=== PATIENT | female | born 1985 | race Caucasian/White ===

== ENCOUNTER 2024-07-31 23:15 | Emergency (ER) | payer BC, SELFPAY ==
[2024-07-31 23:15] VITALS: BMI 29.0
[2024-07-31 23:51] VITALS: BP 122/96; PULSE 115; RESP 20; TEMP 37.1; O2SAT 97
--- NOTE | 2024-08-01 | XR_ITS ---
Examination: Breast ultrasound, unilateral, left complete Date and time of exam: August 01, 2024 0113 hrs. Indications: Left breast pain beginning 2 days ago, history left breast cancer lumpectomy 2 years ago, family history breast cancer, left breast sonogram 09/28/2023 4:00 nodule 7 x 8 mm Technique: Real-time rangel scale ultrasonographic imaging performed left breast including all 4 quadrants as well as nipple retroareolar and axillary region. Findings: 12:00 cyst 2.9 x 1.7 cm 1:00 cyst 2.3 x 1.9 cm 4:00 solid nodule circumscribed 1.0 x 1.0 cm 9:00 cyst 1.6 x 1.1 cm Multiple axillary lymph nodes, the largest 1.1 x 1.0 cm Impression: BI-RADS Category 3: Probably benign findings Recommend 1 additional 6 month left breast sonogram follow-up to document stability of 4:00 solid nodule described above
--- NOTE | 2024-08-01 00:10 | EDNOTE_ITS ---
ED Skin Abcess FB-RME/HPI General Chief complaint: General Adult/Misc Complain Stated complaint: breast mastitis FLAREUP Time Seen by Provider: 07/31/24 23:58 Arrival date/time: 07/31/24 23:15 39F with no significant PMH presents to ED with several months of L breast mastitis flare-ups. Patient was given 2 courses of Keflex in the previous episodes without complete resolution. Patient is not breast-feeding. Limitations: no limitations Related Data Allergies Allergy/AdvReac Type Severity Reaction Status Date / Time No Known Allergies Allergy Verified 07/31/24 23:17 Review of Systems Review of Systems Systems Reviewed: All systems reviewed, normal except as documented Constitutional Constitutional: Reports system reviewed and no additional complaints, except as documented, Denies fever(s) and Denies headache(s) ENT Ears, Nose, Mouth, and Throat: Denies disequilibrium and Denies headache(s) Cardiovascular Cardiovascular: Reports system reviewed and no additional complaints, except as documented, Denies chest pain and Denies dyspnea Respiratory Respiratory: Reports system reviewed and no additional complaints, except as documented, Denies cough and Denies dyspnea Gastrointestinal Gastrointestinal: Reports system reviewed and no additional complaints, except as documented, Denies abdominal pain, Denies nausea and Denies vomiting Integumentary/Breasts Skin/Breast: Reports acne and Reports breast pain Neurologic Neurologic: Reports system reviewed and no additional complaints, except as documented, Denies confusion, Denies disequilibrium and Denies headache(s) Psychiatric Psychiatric: Denies confusion Past Medical History Past Medical History NEUROLOGIC: Negative Neurological Disorders or Seizures CARDIAC: Negative Cardiac Disorders or Congestive Heart Failure RESPIRATORY: Negative Chronic Obstructive Pulmonary Disease (COPD) GASTROINTESTINAL: Positive Gall Bladder Disease (LAP); Negative Gastrointestinal Disorders GENITOURINARY: Positive Genitourinary Disorders and Kidney Stones (X2 PROC, stents); Negative Renal Disease REPRODUCTIVE: Positive Endometriosis and Previous Pregnancies () MUSCULOSKELETAL: Negative Musculoskeletal Disorders ENDOCRINE: Negative Endocrine Disorders, Diabetes Mellitus Type 1 or Diabetes Mellitus Type 2 HEMATOLOGIC: Positive Blood Disorders (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); Negative Hospitalization, Autoimmune Disease, Shingles, Falls, Blood Transfusion Reaction, Anesthesia Reactions, Chemotherapy or MRSA Family History FAMILY HISTORY: Positive Family Cancer (FATHER (BRAIN)) and Family Surgery (MOTHER,FATHER,BROTHER); Negative Family Psychiatric Problems, Family Respiratory Disorders, Family Cardiac Disorders, Family Gastrointestinal Problems or Family Anesthesia Reaction Surgical History SURGICAL: Positive Hysterectomy, Tubal Ligation and Section (x2); Negative Ear Surgery, Nephrectomy, Joint Replacement or Neurologic Surgery Social History SMOKING STATUS: Never smoker ED Exam General Limitations: Present no limitations General appearance: Present alert and in no apparent distress Head Head exam: Present atraumatic Eye Eye exam: Present normal appearance, PERRL and EOMI ENT ENT exam: Present normal exam, normal oropharynx and mucous membranes moist Neck Neck exam: Present normal inspection, full ROM and trachea midline Chest Chest inspection: Present symmetric chest wall rise Expanded Chest Exam Breast: left: erythema and tenderness Respiratory Respiratory exam: Present normal lung sounds bilaterally Cardiovascular Cardiovascular exam: Present regular rate, normal rhythm and normal heart sounds Abdominal Exam Abdominal exam: Present soft and normal bowel sounds Extremities Exam Extremities exam: Present normal inspection and full ROM Back Exam Back exam: Present normal inspection and full ROM Neurological Exam Neurological exam: Present alert, oriented X3 and CN II-XII intact Psychiatric Psychiatric exam: Present normal affect and normal mood Skin Skin exam: Present warm, dry, intact and normal color Course Quality Measures none Orders Category Date Time Status US breast LT complete Stat Exams 08/01/24 00:00 Taken CBC Stat Lab 07/31/24 23:59 Completed CMP [Comprehensive Metabolic Panel] Stat Lab 07/31/24 23:59 Completed Lactate (Lactic Acid) Stat Lab 07/31/24 23:59 Completed Procalcitonin Stat Lab 07/31/24 23:59 Completed Vital Signs Vital signs: Vital Signs Temperature 98.8 F 07/31/24 23:51 Pulse Rate 115 H 07/31/24 23:51 Respiratory Rate 20 07/31/24 23:51 Blood Pressure 122/96 H 07/31/24 23:51 Pulse Oximetry (%) 97 07/31/24 23:51 Oxygen Delivery Method Room Air 07/31/24 23:51 O2 at 97% on RA and WNLs Skin / Abscess / Foreign Body MDM Narrative MDM Narrative:: 39F with no significant PMH presents to ED with several months of L breast mastitis flare-ups. Patient was given 2 courses of Keflex in the previous episodes without complete resolution. Patient is not breast-feeding. 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 No obvious area of fluctuance. Patient is afebrile, calm, and alert. Patient eloped prior to DC. Patient data External records reviewed:: [facility] previous records Clinical information provided by:: patient Social determinants that could affect healthcare access:: none Patient has the following chronic illnesses:: none How is presenting disease/condition affected by chronic disease/condition?: no chronic disease Evaluation data The following diagnostics were reviewed and interpreted by me:: lab results and radiology exam(s) Lab and/or radiology exams considered but not ordered:: ordered Interpretation Summary: above Medications / Prescriptions Medications or Prescriptions considered but not ordered:: not ordered Medication administrations:: n/a Consultations Consultation(s) initiated? (list below): No Diagnosis Skin/Abscess Differential Diagnosis: abscess of skin or subcutaneous tissue, viral exanthem, dermatophytosis, urticaria, herpes zoster, allergic reaction to drug, cellulitis, eczema, insect bites, impetigo, contact dermatitis and other (mastitis, breast cancer) Most likely diagnosis given after review of the tests above:: mastitis Admission Indicated Admission indicated?: not indicated Admission Request Was there a request for admission?: No Disposition Plan Disposition Plan: other (specify) (eloped) Discharge Plan Plan Patient Disposition: Elopement Prescriptions/Referrals Referrals: Opal Eng MD [Primary Care Provider] - In 1 week Problem List Clinical Impression: Mastitis Patient/Caregiver Discharge Instructions Print Language: Greek SKYLAR Supervising Physician SKYLAR Supervising Physician: Dr. Melissa
[2024-08-01 00:56] LABS: Lactate (Lactic Acid) 1.1 mMol/L (0.4-2.0)
[2024-08-01 00:58] LABS: Basophils # (Auto) 0.1 Thou/mm3 (0.0-0.2); Basophils % (Auto) 1 % (0-2.5); Eosinophils # (Auto) 0.1 Thou/mm3 (0.0-0.5); Eosinophils % (Auto) 1 % (0-10); Hemoglobin 12.6 g/dL (12.0-16.0); Immature Granulocytes % (Auto) 0 % (0-0); Immature Granulocytes Auto 0.03 Thou/mm3 (0.00-0.00); Lymphocytes % (Auto) 9 % (10-50); Mean Corpuscular HGB Conc 34.1 g/dl (31.0-37.0); Mean Corpuscular Hemoglobin 29.2 pg (25.0-35.0); Mean Corpuscular Volume 86 fL (80-100); Monocytes # (Auto) 0.9 Thou/mm3 (0.0-0.8); Monocytes % (Auto) 8 % (0-12); Neutrophils % (Auto) 81 % (37-80); Nucleated Red Blood Cell % 0 /100 WBC (0); Platelet Count 165 Thou/mm3 (140-440); Red Blood Count 4.31 Miln/mm3 (4.00-5.20); White Blood Count 11.1 Thou/mm3 (3.6-11.0)
[2024-08-01 01:30] LABS: Alanine Aminotransferase 30 U/L (10-49); Albumin, Serum 4.1 gm/dL (3.5-5.0); Albumin/Globulin Ratio 1.2 (1.2-2.2); Alkaline Phosphatase 74 U/L (46-116); Anion Gap 7 (7-16); Aspartate Amino Transferase 21 U/L (0-34); BUN/Creatinine Ratio 12 Ratio (12-20); Bilirubin,Total 0.3 mg/dL (0.3-1.2); Blood Urea Nitrogen 11 mg/dL (9-23); Calcium 9.8 mg/dL (8.3-10.6); Calcium (Corrected) 9.8 mg/dL (8.5-10.1); Carbon Dioxide 22.6 mMol/L (20.0-31.0); Chloride 108 mMol/L (98-107); Creatinine (Component) 0.9 mg/dL (0.6-1.3); Estimated Creatinine Clearance 88.6 mL/min (>60); Globulin 3.4 gm/dL (2.3-3.5); Glucose 117 mg/dL (74-106); Osmolality,Calculated 276 (275-295); Potassium 3.9 mMol/L (3.4-5.1); Sodium 138 mMol/L (136-145); Total Protein 7.5 gm/dL (5.7-8.2); eGFR > 60 See Note
[2024-08-01 01:31] LABS: Procalcitonin 0.17 ng/ml (0.0-0.49)
--- NOTE | 2024-08-01 02:53 | PC.NURSE ---
PT STATED, IM GOING TO LEAVE, IM IN A LOT OF PAIN, AND NO ONE HAS OFFER ME A TYLENOL. I AM JUST GOING HOME AND TAKE MY OWN. PT WAS MADE AWARE THAT I CAN ASK THE ER DOCTOR TO SEE IF THEY WANT TO GIVE HER SOME PAIN MEDICATION AND PT STILL REFUSED AND STATED, IM JUST GOING TO LEAVE. AND WALK OUT OF THE ER.
== END 2024-08-01 02:53 | disposition left against medical advice (07) ==
PROVIDERS: Physician Assistant; Emergency Provider Emergency Medicine; PCP Internal Medicine
DX: N61.0 Mastitis without abscess (principal)
CPT/HCPCS: 36415; 76641; 80053; 83605; 84145; 85025; 99281